=== PATIENT | female | born 1935 | race Caucasian/White ===

== ENCOUNTER 2024-12-05 18:58 | Inpatient (IN) | payer OTHER, SELFPAY ==
[2024-12-05] VITALS (7 sets, daily range): BP systolic 134–177; BP diastolic 53–106; BMI 24.6; BMI 23.4
[2024-12-05 12:20] LABS: Hematocrit 40.7 % (37.0-47.0); Hemoglobin 14.1 g/dL (12.0-16.0); Mean Corp Hgb Conc. 34.6 g/dL (33.0-37.0); Mean Corpuscular Volume 84.8 fL (81.0-99.0); Nucleated Red Blood Cells % 0 %; Platelet Count 269 10^3/uL (130-400); Red Cell Dist. Width 14.5 % (11.5-14.5)
[2024-12-05 13:04] LABS: ALT (SGPT) 17 U/L (0-35); AST (SGOT) 28 U/L (14-36); Albumin 4.3 g/dl (3.5-5.0); Alkaline Phosphatase 107 U/L (38-126); Blood Urea Nitrogen 17 mg/dl (7-17); Calcium 9.7 mg/dl (8.4-10.2); Carbon Dioxide 18 mmol/L (22-30); Chloride 106 mmol/L (98-107); Glucose 137 mg/dl (70-99); Potassium 4.2 mmol/L (3.5-5.1); Sodium 134 mmol/L (135-145); Total Protein 7.7 g/dl (6.3-8.2); eGFR > 60.00
--- NOTE | 2024-12-05 13:19 | ED.GENMED ---
History of Present Illness
General
Chief Complaint: Weakness
Source: patient
Exam Limitations: none
Time Seen by Provider: 12/05/24 12:51
History of Present Illness
History of Present Illness:
88 year old female presents with daughter who lives with her who states that the patient has been declining since finishing her course of Keflex for urinary tract infection over the past 7 to 10 days. Patient has a history of dementia. Typically
she is ambulatory with a walker however recently she has not been able to walk on her own. She is complaining of diffuse pain and intermittently complains of right sided chest versus upper abdominal pain. History is limited secondary to her level
of dementia. Daughter describes a stay of which she has diffuse pain at times. No measurable fever. There has been no vomiting. No other complaints
Phy Exam
Physical Exam
Physical Exam:
General: Well-appearing female no acute respiratory distress
HEENT: Normal cephalic atraumatic
Heart: Regular rate and rhythm
Lungs: Clear no wheeze
Abdomen soft diffusely tender no guarding nondistended extremities: No cyanosis
Ext: No cyanosis or edema
Neuro: alert, good muscle tone, no facial asymmetry.
Course
Orders/Labs/Results
Orders:
Orders
12/05/24 12:09
Complete Blood Count/With Diff Urgent
Comprehensive Metabolic Panel Urgent
Lactic Acid Urgent
Lipase Urgent
12/05/24 13:19
CT Pe/abd/pel W Urgent
Reason For Exam: abdominal pain
12/05/24 13:23
Electrocardiogram (*1) Urgent
Reason for Study: Chest Pain
EKG- Treatment ONCE
12/05/24 13:24
Straight cath- Treatment ONCE
12/05/24 14:00
COVID-19 Antigen Urgent
Source: Nasal Swab
Troponin I Urgent
Urinalysis Reflex To Culture Urgent
Date Specimen was Collected: 12/05/24
Time Specimen was Collected: 13:59
Urine Microscopic Reflex Cult Urgent
Urine Culture Urgent
PAL Source: U
Specimen Description:
Date Specimen was Collected: 12/05/24
Time Specimen was Collected: 13:59
12/05/24 14:01
Ketorolac [Toradol] 15 mg IV NOW STA
12/05/24 14:23
Add On- LAB Urgent
Tests Added?: lipase
12/05/24 15:18
Add On - Microbiology Urgent
Tests Added?: urine pseudomonas patuda
12/05/24 17:15
Add On- LAB Urgent
Tests Added?: bnp
12/05/24 17:24
Throat Culture [Throat Culture, Comprehensive] Urgent
PAL Source: Throat/Pharynx
Specimen Description:
Abnormal Lab Results
12/05/24 12/05/24
12:09 14:00
Absolute Neuts (auto) 7.8 H 10^3/uL
(1.4-6.5)
Absolute Lymphs (auto) 1.1 L 10^3/uL
(1.2-3.4)
Absolute Monos (auto) 1.1 H 10^3/uL
(0.1-0.6)
Neutrophils % 77.8 H %
(42.2-75.2)
Lymphocytes % 10.9 L %
(20.5-51.1)
Monocytes % 10.5 H %
(1.7-9.3)
Sodium 134 L mmol/L
(135-145)
Carbon Dioxide 18 L mmol/L
(22-30)
Glucose 137 H mg/dl
(70-99)
Troponin I 0.129 H* ng/ml
Urine Ketones 1+ A
(Negative)
Urine Bacteria (Reflex) Few A
(Negative)
Urine Albumin (Reflex) 2+ A
(Neg - Trace)
12/05/24 12:09
12/05/24 12:09
Vital Signs
Initial and Last Documented VS:
Initial Vital Signs
Temp Pulse Resp BP Pulse Ox
98.1 F 80 16 134/64 95
12/05/24 11:59 12/05/24 11:59 12/05/24 11:59 12/05/24 11:59 12/05/24 11:59
Last Documented Vital Signs
Temp Pulse Resp BP Pulse Ox
98.1 F 69 26 134/64 93
12/05/24 11:59 12/05/24 15:30 12/05/24 15:30 12/05/24 11:59 12/05/24 15:30
MDM/Problems Addressed
Differential Diagnosis Includes:
Generalized weakness and diffuse pain. She is quite tender on exam to the abdomen. Consider viral illness versus recurrent UTI versus pneumonia versus COVID. Will check labs. EKG troponin lipase pending. CT ordered of the abdomen x-ray of the
chest ordered
*Pulse Oximetry
SaO2: 95
Oxygen Mode of Delivery: Room air
Patient hypoxic: no
*Critical Care Note
Total Time (30-74mins, 75-104mins- exclusive of procedures): Not Applicable
Update Note
Update Note:
Troponin elevated. This prompted a PE study as well as the abdominal CT. PE study shows no pulmonary embolism but pleural effusion is noted which could be contributing towards her discomfort. Patient is generally weak with pain not ambulating
well and a bump troponin with chest pain. Will admit to hospital for further evaluation
ED Attending Note
-
Portions of this chart may have been created with voice recognition software.� Occasional wrong word or��sound alike� substitutions may have occurred due to the inherent limitations of voice recognition software.
Discharge Plan
Departure
Patient Disposition: Admit
Date of Disposition: 12/05/24
Time of Disposition: 17:25
Presentation/result/management discussed w/ accepting MD/DO: Hospitalist
Discharge Problem:
Chest pain
Prescriptions:
No Action
losartan 50 mg Tablet
50 mg PO DAILY
trazodone 50 mg Tablet
100 mg PO HS
famotidine [Pepcid] 40 mg Tablet
40 mg PO HS
sertraline 100 mg Tablet
100 mg PO HS
methenamine hippurate [Hiprex] 1 gram Tablet
1 g PO QPM
ascorbic acid (vitamin C) [Vitamin C] 250 mg Tablet
250 mg PO QPM
ursodiol 300 mg Capsule
300 mg PO HS
gabapentin 100 mg Capsule
200 mg PO QID
Referrals:
Sowmya Wolf, CLIENT DIRECTOR [Family Provider]
Interventions
Interventions:
*Risk Screen - Suicide Last Done: 12/05/24 15:00
*General Assessment Last Done: 12/05/24 14:32
*Neglect/Abuse Screening Last Done: 12/05/24 15:00
*ED- Fall Risk Assessment Last Done: 12/05/24 14:32
*ED COVID-19 Vaccine History Last Done: 12/05/24 14:32
ED- Cardiac Assessment Last Done: 12/05/24 14:15
ED- Neurological Assessment Last Done: 12/05/24 14:24
ED- Pulmonary Assessment Last Done: 12/05/24 15:00
Discharge Date and Time
Print Language: ARABIC
[2024-12-05] MEDS: TORADOL 15 MG IV ×2 (14:13→22:13)
[2024-12-05 14:14] LABS: Urine Character Clear (Clear)
[2024-12-05 14:21] LABS: Urine Red Blood Cell 0-2 /HPF (0-2); Urine White Cell 0-2 /HPF (0-5)
[2024-12-05 14:30] LABS: COVID-19 Antigen Negative (Negative)
[2024-12-05 14:42] LABS: Troponin I 0.129 ng/ml
[2024-12-05 15:32] LABS: Lipase 118 U/L (23-300)
--- NOTE | 2024-12-05 18:25 | HPS.HSE ---
Addendum entered and electronically signed by Kan Pan MD 12/05/24 23:06:
Aspirin given. Second troponin pending. If troponins will need to consider Heparin drip and cardiology consult.
Addendum entered and electronically signed by Kan Pan MD 12/05/24 23:05:
As per patient's daughter Shayy who is the POA daughter reports the patient was taking Aricept for more than a year with side effects of leaning to the right with concern for fall risk. Patient was weaned off of donepezil over 2-week period
approximately 2 weeks ago and experienced increased confusion.
Original Note:
Family Physician
-
Family Physician: Sowmya Wolf
Chief Complaint
-
chest pain
History of Present Illness
88-year-old female past medical history of dementia, prior gallstones, presenting with acute onset of chest pain.
Today she developed chest pain on the right side of her chest, and had severe pain when she was touched everywhere including her upper arms and chest.
Daughter states that patient has been having altered mental status and was diagnosed with UTI 7 to 10 days ago treated with Keflex. Her mental status did not improve. She had a fall few weeks ago and hit her legs but she did not have any trauma to
her chest.
Daughter states that she has noticed white spots on the patient over the past several months. Patient was also been complaining of sore throat and with white spots in her throat. Patient herself had similar white spots and had a throat culture and
was tested positive for Pseudomonas [place]. Patient has not been treated for this condition.
Patient has also been having constipation last bowel movement 2 days ago and took an enema since then without any bowel movement. No vomiting. No fever.
No prior history of cardiac problems.
She does not smoke or drink alcohol or use drugs.
Medical History
Past Medical History
Past Medical History: Reports Other (dementia, prior gallstones, )
Past Surgical History: Reports None
Social History
Tobacco: Non-smoker
Alcohol: None
Drug: None
Family History
Family History: Not pertinent
Allergies / Home Medications
Allergies reflects when Allergies were last updated in [facility].
Home Medications with original date entered in [facility]
Allergy/Medication List:
Allergies
Allergy/AdvReac Type Severity Reaction Status Date / Time
adhesive tape Allergy Rash Verified 12/05/24 12:03
Home Medications
ascorbic acid (vitamin C) 250 mg tablet (Vitamin C) 250 mg PO QPM 12/05/24
famotidine 40 mg tablet (Pepcid) 40 mg PO HS 12/05/24
gabapentin 100 mg capsule 200 mg PO QID 12/05/24
losartan 50 mg tablet 50 mg PO DAILY 12/05/24
methenamine hippurate 1 gram tablet 1 g PO QPM 12/05/24
sertraline 100 mg tablet 100 mg PO HS 12/05/24
trazodone 50 mg tablet 100 mg PO HS 12/05/24
ursodiol 300 mg capsule 300 mg PO HS 12/05/24
Review of Systems
-
Constitutional: Reports No Symptoms
EENT: Reports No Symptoms
Respiratory: Reports No Symptoms
Cardiac: Reports No Symptoms
Abdomen/GI: Reports No Symptoms
: Reports No Symptoms
Musculoskeletal: Reports No Symptoms
Skin: Reports No Symptoms
Neurological: Reports No Symptoms
Endocrine: Reports No Symptoms
Hematologic/Lymphatic: Reports No Symptoms
Psych: Reports No Symptoms
Physical Exam
Vital Signs
Vital Signs
Temp Pulse Resp BP Pulse Ox
98.1 F 71 19 164/53 94
12/05/24 11:59 12/05/24 17:45 12/05/24 17:45 12/05/24 17:45 12/05/24 17:45
Physical Exam
General: Well Developed, Well Nourished and No Apparent Distress
HEENT: NormoCephalic, Moist mucous membranes and Atraumatic
Respiratory: Clear
Cardiac: S1/S2 and Regular Rhythm; No Murmur or Rub
GI: Soft, Non Tender, Non Distended and Normal Bowel Sounds; No Organomegaly
Rectal: Deferred by Provider
Musculoskeletal: No Clubbing, No Cyanosis and No Edema
Skin: No Rash
Neuro: Nonfocal/grossly intact
Laboratory Results
-
12/05/24 12:09
12/05/24 12:09
Laboratory Results
Lactic Acid 1.3 mmol/L (0.7-2.0) 12/05/24 12:09
Total Bilirubin 0.9 mg/dl (0.2-1.3) 12/05/24 12:09
AST 28 U/L (14-36) 12/05/24 12:09
ALT 17 U/L (0-35) 12/05/24 12:09
Alkaline Phosphatase 107 U/L (38-126) 12/05/24 12:09
Troponin I 0.129 ng/ml H* 12/05/24 14:00
Lipase Cancelled 12/05/24 13:18
Data Reviewed
-
Lab Data: Labs Reviewed by me
Old Records: Reviewed
Impression/Plan
-
IMPRESSION:
PLAN:
# Right-sided chest pain secondary to subacute bilateral rib fractures from recent fall versus ACS
# Troponin elevation
- EKG shows sinus rhythm with premature supraventricular complexes, incomplete right bundle branch block, no prior for comparison, nonspecific T wave inversions
- Troponin of 0.129
- Trend troponins
- CT chest, abdomen pelvis shows no evidence of pulm embolism, small right and trace left pleural effusions with adjacent atelectasis, multiple nondisplaced anterior rib fractures bilaterally likely subacute versus chronic, age-indeterminate mild T3
vertebral compression fracture, mild colonic stool burden, circumferential urinary bladder wall thickening which can be seen in cystitis
- Urinalysis unremarkable
- Toradol given with improvement in pain
- Lidocaine patch
# Ongoing metabolic encephalopathy could be delirium secondary to pain from rib fractures/polypharmacy
-Pain improved with Toradol
-Urinalysis unremarkable
- Does not seem to be active infection
- Hold gabapentin and trazodone
# White spots on body/throat
-Daughter was diagnosed with Pseudomonas Put[place] from throat culture and also has similar white spots but doubt white spots are related to this
- Throat culture sent
# Constipation
- MiraLAX
- Dulcolax enema if needed
# Recently treated UTI
-Urinalysis unremarkable
- Completed course of antibiotics
Anxiety/depression
- continue sertraline
- Hold trazodone
Dementia
Essential hypertension
- Continue losartan
History of gallstones
- Continue ursodiol
Full code
DVT prophylaxis�heparin
Regular diet
--- NOTE | 2024-12-05 22:19 | PTCARENOTE ---
Addendum entered by Ria Alberts RN 12/06/24 00:18:
Patient is sleeping at this time. Daughter at bedside.
Original Note:
Rec'd patient from ER. extremely anxious / restless/ crying with changing her/ activity. c/o pain but unable o specify. ordered Toradol IV given as ordered.
[2024-12-05] MEDS: ZOLOFT 100 MG PO (22:28)
[2024-12-05] MEDS: ACTIGALL 300 MG PO (22:28)
[2024-12-05] MEDS: PEPCID 40 MG PO (22:28)
[2024-12-05] MEDS: HEPARIN 5000 UNITS SC (22:36)
[2024-12-05] MEDS: OFIRMEV 100 IV (23:20)
[2024-12-05] MEDS: LOW STRENGTH ASPIRIN 324 MG PO (23:20)
[2024-12-05 23:47] LABS: Troponin I 0.113 ng/ml
[2024-12-06] VITALS (7 sets, daily range): BP systolic 131–155; BP diastolic 56–80
[2024-12-06 08:54] LABS: Hematocrit 36.0 % (37.0-47.0); Hemoglobin 12.6 g/dL (12.0-16.0); Mean Corp Hgb Conc. 35.0 g/dL (33.0-37.0); Mean Corpuscular Volume 86.3 fL (81.0-99.0); Nucleated Red Blood Cells % 0 %; Platelet Count 246 10^3/uL (130-400); Red Cell Dist. Width 14.6 % (11.5-14.5)
[2024-12-06 09:16] LABS: ALT (SGPT) 14 U/L (0-35); AST (SGOT) 26 U/L (14-36); Albumin 3.6 g/dl (3.5-5.0); Alkaline Phosphatase 90 U/L (38-126); Blood Urea Nitrogen 21 mg/dl (7-17); Calcium 9.2 mg/dl (8.4-10.2); Carbon Dioxide 20 mmol/L (22-30); Chloride 108 mmol/L (98-107); Estimated Creatinine Clearance 58 ml/min; Glucose 102 mg/dl (70-99); Potassium 4.2 mmol/L (3.5-5.1); Sodium 134 mmol/L (135-145); Total Protein 6.6 g/dl (6.3-8.2); eGFR > 60.00
[2024-12-06 09:21] LABS: Troponin I 0.122 ng/ml
[2024-12-06] MEDS: MIRALAX PO (10:31)
[2024-12-06] MEDS: LIDOCAINE 4% PATCH TOPICAL (10:31)
[2024-12-06] MEDS: COZAAR PO (10:31)
[2024-12-06] MEDS: HEPARIN SC (10:31)
--- NOTE | 2024-12-06 10:31 | PTCARENOTE ---
Pt is moving to a private room. The family wishes to stay the night with her due to the confusion. Assessed pt and she was non verbal for me. She waxes and wains. No meds given due to drowsy state. Speech consult in. Gave report to [facility], moving
to room 424
--- NOTE | 2024-12-06 13:23 | W.PN.HOSP.TC ---
Today's Communication/Plan
-
see note
Assessment / Plan
Assessment / Plan
# Right-sided chest pain
-Suspecting from rib fracture from fall this month
- CT chest, abdomen pelvis shows no evidence of pulm embolism, small right and trace left pleural effusions with adjacent atelectasis, multiple nondisplaced anterior rib fractures bilaterally likely subacute versus chronic, age-indeterminate mild T3
vertebral compression fracture, mild colonic stool burden, circumferential urinary bladder wall thickening which can be seen in cystitis
-Symptomatic care with pain medication
# Troponin elevation
- EKG shows sinus rhythm with premature supraventricular complexes, incomplete right bundle branch block, no prior for comparison, nonspecific T wave inversions
-Minimal elevation, monitor
- Trend troponins
# Toxic metabolic encephalopathy
-Just finished course of UTI recently. UA negative. COVID-negative.
-CT head without contrast ordered
-Patient also has been taken off of donezepil recently and possibly playing role in wide array of symptoms
#Dysphagia r/o
- Reported swallowing difficulty, speech therapy evaluation ordered
# Possible oral thrush
- Daughter convinced that patient may have pseudomonal infection, clinically seems less likely and likely candidal oral thrush
- Throat culture has been collected to rule out any bacterial infection
- Will start on empiric nystatin swish and swallow
# Constipation
- Dulcolax enema if needed
# Recently treated UTI
-Urinalysis unremarkable
-Completed course of antibiotics
#Anxiety/depression
- continue sertraline
- Hold trazodone
#Dementia w/o behavioral issues
- Have wide array of symptoms pointing toward worsening dementia/neurocognitive symptoms
- Possibly discontinuing Aricept recently may have played role. Will look into [place] records
#Essential hypertension
- Continue losartan
#History of gallstones
- Continue ursodiol
Full code
DVT prophylaxis�heparin
Total time spent ; 53 mins
Discussed with Patient Daughter/son at bedside
Anticipated Discharge: 24 - 48 hours
Subjective/Interval History
-
Date of Service: December 06, 2024
Patient waking up, remains pleasantly confused
No behavioral issues reported
Afebrile in the night
Objective Data
-
Labs:
Laboratory Results
12/06/24
06:28
WBC 11.0 H
Hgb 12.6
Hct 36.0 L
Plt Count 246
Sodium 134 L
Potassium 4.2
Chloride 108 H
Carbon Dioxide 20 L
BUN 21 H
Creatinine 0.7
Glucose 102 H
Calcium 9.2
Total Bilirubin 0.9
AST 26
ALT 14
Alkaline Phosphatase 90
Vital Signs:
Vital Signs
Temp Pulse Resp BP Pulse Ox
98.2 F 90 17 135/72 99
12/06/24 11:00 12/06/24 11:00 12/06/24 11:00 12/06/24 11:00 12/06/24 11:00
I&O
12/05/24 12/06/24 12/07/24
06:59 06:59 06:59
Intake Total 480 / 480
Balance 480 / 480
Review of Systems
-
Unable to obtain full review of systems at this time due to: Dementia
Physical Exam
-
General: No Apparent Distress and Comfortable
HEENT: Other (white patch on oropharynx); Negative Oxygen
Respiratory: Clear to Auscultation
Cardiac: Regular Rhythm and S1/S2; Negative Murmur or Rub
Musculoskeletal: No Edema
Neuro: Awake, Alert, Oriented, No Motor Deficits and Nonfocal/Grossly Intact
Psych: Calm
[2024-12-06 13:33] LABS: Troponin I 0.084 ng/ml
[2024-12-06] MEDS: TORADOL 15 MG IV (17:24)
[2024-12-06] MEDS: MYCOSTATIN ORAL SUSPENSION 5 ML PO ×2 (17:24→21:50)
[2024-12-06] MEDS: HIPREX 1 GRAM PO (17:25)
[2024-12-06] MEDS: VITAMIN C 250 MG PO (17:25)
[2024-12-06] MEDS: HEPARIN 5000 UNITS SC (19:52)
[2024-12-06] MEDS: ACTIGALL 300 MG PO (21:50)
[2024-12-06] MEDS: ZOLOFT 100 MG PO (21:50)
[2024-12-06] MEDS: PEPCID 40 MG PO (21:50)
[2024-12-07 03:59] VITALS: BP 141/63
[2024-12-07 07:05] VITALS: BP 172/78
[2024-12-07] MEDS: LIDOCAINE 4% PATCH 1 PATCH TOPICAL (08:09)
[2024-12-07] MEDS: MIRALAX 17 GRAMS PO (08:09)
[2024-12-07] MEDS: COZAAR 50 MG PO (08:11)
[2024-12-07] MEDS: MYCOSTATIN ORAL SUSPENSION 5 ML PO ×2 (08:11→11:32)
[2024-12-07] MEDS: HEPARIN 5000 UNITS SC (08:12)
[2024-12-07 10:25] VITALS: BP 171/78; PULSE 103; O2SAT 95
[2024-12-07 11:00] LABS: Hematocrit 37.0 % (37.0-47.0); Hemoglobin 12.8 g/dL (12.0-16.0); Mean Corp Hgb Conc. 34.6 g/dL (33.0-37.0); Mean Corpuscular Volume 85.8 fL (81.0-99.0); Platelet Count 275 10^3/uL (130-400); Red Cell Dist. Width 14.3 % (11.5-14.5)
[2024-12-07 11:17] VITALS: BP 190/84
[2024-12-07 11:22] LABS: Blood Urea Nitrogen 20 mg/dl (7-17); Calcium 9.2 mg/dl (8.4-10.2); Carbon Dioxide 20 mmol/L (22-30); Chloride 106 mmol/L (98-107); Estimated Creatinine Clearance 68 ml/min; Glucose 131 mg/dl (70-99); Potassium 4.4 mmol/L (3.5-5.1); Sodium 132 mmol/L (135-145); eGFR > 60.00
[2024-12-07] MEDS: TORADOL 15 MG IV (11:31)
--- NOTE | 2024-12-07 12:00 | PTOTSP ---
ST Acute Care Evaluation
Pt currently presents with clinical signs of mild oropharyngeal and esophageal dysphagia characterized by prolonged mastication and bolus formation with hard solids, reduced bolus formation resulting in oral residue with reduced oral awareness
requiring [employer]CIAL [employer]'S LICENSE DRIVER prompting for use of strategies to help clear, aerophagia with ingestion of sips thin liquid via open cup,piecemeal deglutition with thin liquids vi aopen cup, occasional weak coughing s/p ingestion of thin liquids via open cup which
could indicate penetration/aspiration events, and persistent eructation s/p ingestion of thin liquids.
Pt is at an elevated aspiration risk due to her poor attention to task, reduced safety awareness, impulsivity with bite/sip size and intake rate, and reliance on others for feeding.
Recommendations:
- Change diet to soft bite sized solids with thin liquids via SMALL SINGLE SIPS ONLY
- Medications whole or crushed in puree.
- Aspiration & GERD precautions: 1:1 assistance with ALL PO intake; HOB upright for all PO intake and for 60 minutes after PO intake; small bites/sips; slow intake rate; alternate solids/liquids.
- COMMERCIAL [employer]IVER'S LICENSE DRIVER to f/u re: diet tolerance, use of compensatory strategies, aspiration precaution education, and to determine if pt would benefit from an instrumental swallow study.
--- NOTE | 2024-12-07 14:48 | W.PN.HOSP.TC ---
Today's Communication/Plan
-
d./c home
Assessment / Plan
Assessment / Plan
# Right-sided chest pain
-Suspecting from rib fracture from fall this month
- CT chest, abdomen pelvis shows no evidence of pulm embolism, small right and trace left pleural effusions with adjacent atelectasis, multiple nondisplaced anterior rib fractures bilaterally likely subacute versus chronic, age-indeterminate mild T3
vertebral compression fracture, mild colonic stool burden, circumferential urinary bladder wall thickening which can be seen in cystitis
-Symptomatic care with pain medication
# Troponin elevation
- EKG shows sinus rhythm with premature supraventricular complexes, incomplete right bundle branch block, no prior for comparison, nonspecific T wave inversions
-Minimal elevation, monitor
- Trend troponin
# Toxic metabolic encephalopathy - Improved
-Just finished course of UTI recently. UA negative. COVID-negative.
-CT head without contrast ordered
-Patient also has been taken off of donepezil recently and possibly playing role in wide array of symptoms
#Dysphagia r/o
- ST recommended
# Possible oral thrush
- Daughter convinced that patient may have pseudomonal infection, clinically seems less likely and likely candidal oral thrush
- Throat culture has been collected to rule out any bacterial infection
- Will start on empiric nystatin swish and swallow
# Constipation
- Dulcolax enema if needed
# Recently treated UTI
-Urinalysis unremarkable
-Completed course of antibiotics
#Anxiety/depression
- continue sertraline
- Hold trazodone
#Dementia w/o behavioral issues
- Have wide array of symptoms pointing toward worsening dementia/neurocognitive symptoms
- Possibly discontinuing Aricept recently may have played role. Will look into [place] records
#Essential hypertension
- Continue losartan
#History of gallstones
- Continue ursodiol
Full code
DVT prophylaxis�[facility]parin
[facility] and patient was meant to be on donepezil 5 mg daily and gabapentin 3 mg at bedtime. Patient has been taken off of donepezil by family member for concern of postural change/balance issues. Sent a message to
neurology to have patient follow up to discuss potential need of resumption,
More than 30 minutes spent in discharge including
Final examination of the patient
Summarizing hospital stay
Instructions for continuing care to all relevant caregivers
Preparation of discharge records, prescriptions, and referral forms
Total time spent (in minutes): 38 mins
Anticipated Discharge: Today
Subjective/Interval History
-
Date of Service: December 07, 2024
mentation stable, no reported behavioral issues overnight
afebrile
Objective Data
-
Labs:
Laboratory Results
12/07/24
10:28
WBC 7.6
Hgb 12.8
Hct 37.0
Plt Count 275
Sodium 132 L
Potassium 4.4
Chloride 106
Carbon Dioxide 20 L
BUN 20 H
Creatinine 0.6
Glucose 131 H
Calcium 9.2
Vital Signs:
Vital Signs
Temp Pulse Resp BP Pulse Ox
98.5 F 85 16 190/84 94
12/07/24 11:17 12/07/24 11:17 12/07/24 11:17 12/07/24 11:17 12/07/24 11:17
I&O
12/06/24 12/07/24 12/08/24
06:59 06:59 06:59
Intake Total 480 / 480
Balance 480 / 480
Review of Systems
-
Respiratory: Reports No Symptoms
Cardiac: Reports No Symptoms
Abdomen/GI: Reports No Symptoms
Physical Exam
-
General: No Apparent Distress and Comfortable
HEENT: Other (white patch on oropharynx); Negative Oxygen
Neuro: Awake and Alert; Negative Oriented
Psych: Calm
--- NOTE | 2024-12-07 15:08 | CM ---
budget manager reviewed patient's chart and patient was admitted from home where she is cared for by her 5 children, patient's daughter Shayy is a nurses, patient lives in a one story home with ramp to enter, patient requires total care, and plan is
for patient to return to home with [facility] nursing team when stable. Patient has w/c in room and family will transport patient to home today, IMM completed and placed on chart.
PCP: Sowmya Wolf
Pharmacy: [facility]
Plan; Home with [facility].
[facility]
[phone]
[2024-12-07 15:34] VITALS: BP 199/81
--- NOTE | 2024-12-07 16:31 | W.DCSUMMARY ---
Discharge Summary
Discharge Data
Date of Admission: 12/05/24
Date of Discharge: 12/07/24
-
Pending Results: No
Hospital Course
Discharging Physician : Dr Juan Manuel Rodrigez
Disposition : To home
Primary care physician : Dr Sowmya Wolf
Principal Discharge diagnosis :
Generalized weakness
Oral thrush
Dysphagia
Chronic Discharge diagnosis :
Dementia without behavioral problems
Essential hypertension
Gastroesophageal varices
Depression/anxiety
Hospital Course :
Patient is a 88-year-old female with Hypotension past medical history was brought in by family after patient was felt to having rapid decline in overall function. There was question of patient also having possible new bacterial/pseudomonal skin
infection although on clinical evaluation nothing to warrant that. Throat culture was checked and was negative for any bacterial growth. Patient may have possible oral thrush and was provided nystatin swish and swallow prescription. Other
infectious workup was negative. CT head was clear as well. Patient was evaluated by physical therapy and was deemed appropriate for rehab. Patient family opted for patient to be discharged home with home health care. Of note patient has been
taken off of donepezil/dementia medication by family member for concern of change in posture/balance. I have recommended for patient to be followed by neurology postdischarge.
Important imaging findings :
None
Procedure findings :
None
Discharge Plan
-
Patient Disposition: Home with Home Care
Discharge Diagnosis/Procedures: Dementia, oral thrush, encephalopathy, skin rash, Generalized weakness
Condition: Fair
Diet: Other diet
Additional Diets: - Soft bite sized solids with thin liquids via SMALL SINGLE SIPS ONLY
- Medications whole or crushed in puree.
Activity: As tolerated
Driving Restrictions: No driving
Bathing Restrictions: OK to Shower
Referrals:
Sowmya Wolf, [employer]YER [Family Provider] - in one week
Prescriptions:
New
nystatin 100,000 unit/mL suspension
5 ml PO QID 10 Days Qty: 200 0RF
Rx Instructions:
Ukrainian and swallow
Continued
losartan 50 mg Tablet
50 mg PO DAILY
trazodone 50 mg Tablet
100 mg PO HS
famotidine [Pepcid] 40 mg Tablet
40 mg PO HS
sertraline 100 mg Tablet
100 mg PO HS
methenamine hippurate 1 gram Tablet
1 g PO QPM
ascorbic acid (vitamin C) [Vitamin C] 250 mg Tablet
250 mg PO QPM
ursodiol 300 mg Capsule
300 mg PO HS
Changed
gabapentin 100 mg Capsule
300 mg PO HS Qty: 0 0RF
Discharge Orders:
Discharge Patient (As Directed); Ordered 12/07/24
Ordered By: Juan Manuel Rodrigez
Discharge Date and Time
Discharge Date/Time: 12/07/24 16:13
Print Language: IRISH
== END 2024-12-07 16:13 | disposition home health service (06) | DRG 884 ==
LOC: 4 WEST ACU 18:58
PROVIDERS: Emergency Medicine; Physician Assistant; ADMITTING PHYSICIAN Hospitalist; ATTENDING PHYSICIAN Hospitalist; EMERGENCY PHYSICIAN Emergency Medicine; FAMILY PHYSICIAN Nurse Practitioner Adult Health
DX: F03.93 Unspecified dementia, unspecified severity, with mood disturbance (principal); G93.41 Metabolic encephalopathy; B37.0 Candidal stomatitis; N39.0 Urinary tract infection, site not specified; F03.94 Unspecified dementia, unspecified severity, with anxiety; F32.A Depression, unspecified; I10 Essential (primary) hypertension; I49.1 Atrial premature depolarization; K59.00 Constipation, unspecified; Z11.52 Encounter for screening for COVID-19
CPT/HCPCS: 70450; 71275; 74177; 80048; 80053; 81003; 81015; 83605; 83690; 83880; 84484; 85025; 85027; 87070; 87086; 87811; 92610; 93005; 96374; 96375; 97163; 97167; 99285; Q9967